=== PATIENT | female | born 1995 | race Caucasian/White ===

== ENCOUNTER 2020-03-08 11:07 | Emergency (ER) | payer OTHER, SELFPAY ==
[~2020-03-08] VITALS: Ht 167.6 cm; Wt 68.0 kg
[2020-03-08 11:09] VITALS: Ht 167.6 cm; Wt 68.0 kg
[2020-03-08 14:09] VITALS: BP 116/72
== END 2020-03-08 14:09 | disposition home or self-care (01) ==
LOC: ED 11:07
DX: A08.4 Viral intestinal infection, unspecified (principal)
CPT/HCPCS: J2405; J7030

== ENCOUNTER 2020-03-29 11:57 | Emergency (ER) | payer OTHER ==
[2020-03-29 14:24] LABS: BASOPHIL % 0.5 % (0-2); PLATELET COUNT 274 x10^3mcL (130-400); RED CELL DISTRIBUTION WIDTH 12.5 % (11.5-14.5)
[2020-03-29 14:52] LABS: ALBUMIN 4.4 g/dL (3.4-5.0); ALKALINE PHOSPHATASE 65 U/L (46-116); ALT/SGPT 27 U/L (14-59); AST/SGOT 15 U/L (15-37); BILIRUBIN TOTAL 0.7 mg/dL (0.20-1.00); CALCIUM 9.2 mg/dL (8.5-10.1); CARBON DIOXIDE 19.9 mmol/L (21-32); CHLORIDE SERUM 99 mmol/L (98-107); CREATININE SERUM 0.8 mg/dL (0.6-1.0); GFR1 > 60 mL/min; GLUCOSE SERUM 67 mg/dL (74-106); LIPASE 115 IU/L (73-393); POTASSIUM SERUM 4.7 mmol/L (3.5-5.1); SODIUM SERUM 136 mmol/L (136-145); TOTAL PROTEIN, SERUM 8.2 g/dL (6.4-8.2)
[2020-03-29 16:35] VITALS: BP 108/68
== END 2020-03-29 16:00 | disposition home or self-care (01) ==
LOC: ED 11:57
PROVIDERS: Emergency Medicine
DX: E86.0 Dehydration (principal); R11.2 Nausea with vomiting, unspecified
CPT/HCPCS: 82962; J2405; J7030

== ENCOUNTER 2020-04-08 08:49 | Emergency (ER) | payer OTHER ==
[~2020-04-08] VITALS: Ht 165.1 cm; Wt 63.5 kg
[2020-04-08 08:59] VITALS: Ht 165.1 cm; Wt 63.5 kg
[2020-04-08 09:29] LABS: UA SPECIFIC GRAVITY >=1.030 (1.005-1.035); microscopic required? YES; urine erythrocyte 2+ (NEGATIVE)
[2020-04-08 09:33] LABS: BASOPHIL % 0.7 % (0-2); PLATELET COUNT 193 x10^3mcL (130-400); RED CELL DISTRIBUTION WIDTH 13.2 % (11.5-14.5)
[2020-04-08 09:48] LABS: CALCIUM 8.5 mg/dL (8.5-10.1); CARBON DIOXIDE 15.8 mmol/L (21-32); CHLORIDE SERUM 104 mmol/L (98-107); CREATININE SERUM 0.9 mg/dL (0.6-1.0); GFR1 > 60 mL/min; GLUCOSE SERUM 74 mg/dL (74-106); POTASSIUM SERUM 3.6 mmol/L (3.5-5.1); SODIUM SERUM 141 mmol/L (136-145)
[2020-04-08 09:53] LABS: ALBUMIN 4.3 g/dL (3.4-5.0); ALKALINE PHOSPHATASE 65 U/L (46-116); ALT/SGPT 25 U/L (14-59); AST/SGOT 17 U/L (15-37); BILIRUBIN TOTAL 0.62 mg/dL (0.20-1.00); LIPASE 451 IU/L (73-393); TOTAL PROTEIN, SERUM 7.8 g/dL (6.4-8.2)
[2020-04-08 12:30] LABS: AMPHETAMINE QUAL UR NONE DETECTED (See below)
[2020-04-08 13:10] VITALS: BP 105/69
== END 2020-04-08 13:10 | disposition home or self-care (01) ==
LOC: ED 08:49
PROVIDERS: Emergency Medicine
DX: R10.13 Epigastric pain (principal); R11.2 Nausea with vomiting, unspecified
CPT/HCPCS: J2405; J3490; J7030; Q0092

== ENCOUNTER 2020-05-03 11:15 | Emergency (ER) | payer OTHER ==
[~2020-05-03] VITALS: Ht 167.6 cm; Wt 59.0 kg
[2020-05-03 11:22] VITALS: Ht 167.6 cm; Wt 59.0 kg
[2020-05-03 12:20] LABS: CALCIUM 9.1 mg/dL (8.5-10.1); CARBON DIOXIDE 25.3 mmol/L (21-32); CHLORIDE SERUM 92 mmol/L (98-107); GFR1 > 60 mL/min; GLUCOSE SERUM 80 mg/dL (74-106); POTASSIUM SERUM 3.5 mmol/L (3.5-5.1); SODIUM SERUM 133 mmol/L (136-145)
[2020-05-03 12:33] LABS: ALBUMIN 3.9 g/dL (3.4-5.0); ALKALINE PHOSPHATASE 61 U/L (46-116); ALT/SGPT 378 U/L (14-59); AST/SGOT 155 U/L (15-37); BILIRUBIN TOTAL 1.6 mg/dL (0.20-1.00); LIPASE 479 IU/L (73-393); T4(THYROXINE) 9.2 ug/dL (4.7-13.3); TOTAL PROTEIN, SERUM 6.8 g/dL (6.4-8.2)
[2020-05-03 14:32] LABS: BASOPHIL % 0.4 % (0-2); PLATELET COUNT 162 x10^3mcL (130-400); RED CELL DISTRIBUTION WIDTH 14.3 % (11.5-14.5)
[2020-05-03 15:17] VITALS: BP 110/71
== END 2020-05-03 15:17 | disposition home or self-care (01) ==
LOC: ED 11:15
PROVIDERS: Emergency Medicine
DX: K85.90 Acute pancreatitis without necrosis or infection, unspecified (principal); R11.0 Nausea
CPT/HCPCS: C9113; J0780; J7030; Q9967

== ENCOUNTER 2020-06-02 16:45 | Inpatient (IN) | payer OTHER ==
[~2020-06-02] VITALS: Ht 162.6 cm; Wt 52.6 kg
[2020-06-02 17:16] VITALS: Ht 162.6 cm; Wt 52.6 kg
--- NOTE | 2020-06-02 17:32 | NUR ---
PT PRESENTS TO ED FOR EPIGASTIC PAIN X4 DAYS. PT STATES PAIN STARTED WHEN SHE BEGAN DRINKING ETOH. PT STATED SHE STOPPED DRINKING ETOH 2 MONTHS AGO, BUT GETS FLARE UP. PT ABD IS SOFT FLAT AND NON-RIGID. PT DENIES ANY VOMITING, DIARRHEA, OR CONSTIPATION. PT DENIES ANY BLOOD IN STOOL. PT DENIES ANY TENDERNESS TO PALPITATION. PT HAS ACTIVE BOWEL SOUNDS. PT A&O X4, RESP E/U, AND EQUAL CHEST RISE. WILL CONTINUE TO MONITOR.
[2020-06-02 18:02] LABS: BASOPHIL % 0.7 % (0-2); PLATELET COUNT 206 x10^3mcL (130-400)
--- NOTE | 2020-06-02 18:09 | NUR ---
PT A&O X4, RESP E/U, EQUAL RISE OF CHEST. WILL CONTINUE TO FOLLOW
[2020-06-02 18:16] LABS: RED CELL DISTRIBUTION WIDTH 18.9 % (11.5-14.5)
[2020-06-02 18:33] LABS: ALBUMIN 4.3 g/dL (3.4-5.0); ALKALINE PHOSPHATASE 72 U/L (46-116); ALT/SGPT 374 U/L (14-59); AST/SGOT 187 U/L (15-37); BILIRUBIN TOTAL 2.54 mg/dL (0.20-1.00); CALCIUM 9.5 mg/dL (8.5-10.1); CARBON DIOXIDE 19.1 mmol/L (21-32); CHLORIDE SERUM 106 mmol/L (98-107); CREATININE SERUM 0.9 mg/dL (0.6-1.0); GFR1 > 60 mL/min; GLUCOSE SERUM 78 mg/dL (74-106); LIPASE 710 IU/L (73-393); MAGNESIUM 1.8 mg/dL (1.8-2.4); SODIUM SERUM 138 mmol/L (136-145); T4(THYROXINE) 9.3 ug/dL (4.7-13.3); TOTAL PROTEIN, SERUM 7.6 g/dL (6.4-8.2)
[2020-06-02 18:39] LABS: POTASSIUM SERUM 2.7 mmol/L (3.5-5.1)
[2020-06-02 19:01] LABS: UA SPECIFIC GRAVITY >=1.030 (1.005-1.035); microscopic required? YES; urine erythrocyte 3+ (NEGATIVE)
[2020-06-02 19:06] LABS: AMPHETAMINE QUAL UR NONE DETECTED (See below)
--- NOTE | 2020-06-02 19:08 | NUR ---
PT A&O X4, RESP E/U, EQUAL CHEST RISE. WILL CONTINUE TO MONITOR.
--- NOTE | 2020-06-02 19:15 | NUR ---
RECIEVED REPRT FROM SUE AVILA TO ASSUME CARE. PT AAOX4, DENIES ANY PAIN AT THIS TIME. PT MADE AWARE OF ADMIT ORDERS.
[2020-06-02] MEDS ORDERED: ZOF4 PO (20:14)
--- NOTE | 2020-06-02 20:25 | NUR ---
UPON ENTERING ROOM PT VISIBLY TEARFUL, PT STATED SHE WAS SCARED ABOUT BEING ADMITTED. SAT WITH PT AND PROVIDED COMFORT.
--- NOTE | 2020-06-02 20:49 | NUR ---
PT C/O HER ARM BURNING. PT SALINE BOLUS WAS OUT AND K+ WAS STILL INFUSING. STARTED SECOND ORDERED NS BLOUS AND PT STATED BURNING SUBSIDED.
--- NOTE | 2020-06-03 00:22 | NUR ---
PT ARRIVED TO [facility] AT 2205 VIA GURNEY ACCOMPANIED BY RN. PT WAS ABLE TO AMBULATE FROM HALLWAY TO BED BUT REQUIRED STAND BY ASSIST PT APPEARS WEAK. A/OX4, CALM AND COOPERATIVE. RESPIRATIONS EVEN, UNLABORED, CTA, RA, DENIES SOB. PT PLACED ON TELE, SINUS TACH 115-124, DENIES CHEST PAIN. PERIPHERAL PULSES WEAK. NO EDEMA NOTED. BS ACTIVE, ABD SOFT AND FLAT, PT UNABLE TO RECALL LBM, STATES "WEEKS, I HAVENT BEEN EATING". PT STATES HER APPETITE IS POOR AND HAS LOST 30 LOBS IN THE LAST COUPLE MONTHS. SHE IS ONLY ABLE TO DRINK SMALL AMOUNTS OF WATER. DENIES DURINARY ISSUES BUT REPORTS URINE IS DARK. SKIN INTACT. SL L HAND 22G, PATENT. RN ATTEMPTED TO RUN 40MEQkCL + NS @80ML.HR ORDERED, BUT PT XPERIENCING INTENSE PAIN TO IV SITE. RN ATTEMTED TO YSITE IV TO DILUTE BUT UNSUCCESSFUL. RN ATTEMPTED TO PLACE IV RUE, PT REQUESTED IT TO BE REMOVED IT WAS PAINFUL WELL. WILL LET L HAND REST AND RESTART. PT EDUCATED TO CALL LIGHT, ORIENTED TO ROOM. BED IN LOWEST PSOITION, SIDE RAILS X 2, CALL LIGTH WITHIN REACH
[2020-06-03 02:02] VITALS: BP 109/74
--- NOTE | 2020-06-03 03:43 | NUR ---
PT USED CALL C/O OF HEARTBURN. RN EDUCATED PT ON ORIGIN OF PAIN AND PAIN MEDICATION WELL REGIMEN. MORPHINE 4MG IVP ADMINISTERED ORDERED. 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 ALL NEEDS MET. BED IN LOWEST POSITION, SIDE RAILS X 2, CALL LIGHT WITHIN REACH
[2020-06-03 05:42] VITALS: BP 96/61
--- NOTE | 2020-06-03 06:35 | NUR ---
PT LYING IN BED SLEEPING SUPINE. RESPIRATIONS UNLABORED, NON VERBAL PAIN INDICATORS ABSENT. IV L HAND PATENT, RUNNING NS+40MEQKCL@80ML/HR, NO COMPLICATIONS TO SITE. PT C/O EPIGASTRIC PAIN X 1, MORPHINE 4 MG ADMINISTERED, EFFECTIVE. PT HAS GENERALIZED WEKANESS, ASSISTED TO RESTROOM X 2. NO C/O SOB, CHEST PAIN, N/V, LIGHT HEADEDNESS DURING SHIFT . BED IN LOWEST POSITION, SIDE RAILS X 2, CALL LIGHT WITHIN REACH
[2020-06-03 06:51] LABS: BASOPHIL % 0.6 % (0-2); PLATELET COUNT 150 x10^3mcL (130-400)
[2020-06-03 07:15] LABS: ALKALINE PHOSPHATASE 44 U/L (46-116); ALT/SGPT 212 U/L (14-59); AST/SGOT 99 U/L (15-37); BILIRUBIN TOTAL 1.55 mg/dL (0.20-1.00); CALCIUM 7.8 mg/dL (8.5-10.1); CARBON DIOXIDE 17.1 mmol/L (21-32); CHLORIDE SERUM 113 mmol/L (98-107); CREATININE SERUM 0.7 mg/dL (0.6-1.0); GFR1 > 60 mL/min; GLUCOSE SERUM 60 mg/dL (74-106); LIPASE 794 IU/L (73-393); MAGNESIUM 1.5 mg/dL (1.8-2.4); PHOSPHOROUS 2.6 mg/dL (2.5-4.9); POTASSIUM SERUM 3.3 mmol/L (3.5-5.1); SODIUM SERUM 144 mmol/L (136-145)
[2020-06-03 07:27] LABS: ALBUMIN 2.8 g/dL (3.4-5.0); TOTAL PROTEIN, SERUM 4.9 g/dL (6.4-8.2)
[2020-06-03 08:00] LABS: RED CELL DISTRIBUTION WIDTH 19.2 % (11.5-14.5)
[2020-06-03 09:27] VITALS: BP 103/74
--- NOTE | 2020-06-03 12:17 | NUR ---
0830 PATIENT LAYING IN BED, VS STABLE, NO COMPLAINT OF PAIN, JUST SOME NAUSEA. PATIENT WAS GIVEN MEDICATION FOR NAUSEA, NAUSEA WAS CONTROLLED TO 4/10. NO OTHER COMPLAINTS AT THE [facility].
--- NOTE | 2020-06-03 12:19 | NUR ---
DR BADILLO CAME TO SPEAK TO PATIENT. NO ABNORMAL LABS FOUND. VS STABLE. LOCX4 POSSIBLE DISCHARGE IF PATIENT CAN TOLERATE CLEAR LIQUID DIET.
[2020-06-03 13:11] VITALS: BP 112/78
--- NOTE | 2020-06-03 14:00 | NUR ---
PATIENT HEART RATE TENDS TO GO UP TO 130S, DR TAI.
[2020-06-03 16:53] VITALS: BP 107/74
--- NOTE | 2020-06-03 18:31 | NUR ---
PATIENT HAS BEEN ENCOURAGED TO EAT NEW DIET ORDER, CLEAR LIQUIDS. PATIENT WAS EDUCATED ON NUTRITION. PATIENT AGREED TO TRY TO EAT SOMETHING.
--- NOTE | 2020-06-03 19:59 | NUR ---
PT RECEIVED LYING IN BED SUPINE WATCHING TV. PT ASSISTED TO RESTROOM DUE TO WEAKNESS. A/OX4, PT APPEARS WORRIED AND ANXIOUS BUT RELUCTANT TO SHARE. RESPIRATIONS UNLABORED, CTA, RA, DENIES SOB. TELE 9, ST 115 UPTO 180 WHEN AMBUALTING TO RESTROOM. PT DENIES CHEST PAIN OR DIZZINESS/LIGHTHEADEDNESS. ABD SOFT AND FLAT, BS ACTIVE, UKNOWN LBM. PT STATES SHE CONTINUES TO HAVE NAUSEA AND DID NOT EAT CLD BECAUSE SHE IS "SCARED TO THROW UP". ANTIEMETIC PRIOR TO EATING DISCUSSED HOWEVER, PT REFUSED. EMESIS BAG PROVIDED. DENIES URINARY ISSUES. SKIN INTACT. IV L HAND RUNNING NS+40MEQ KCL @ 80ML/HR PATENT, NO COMPLICATIONS TO SITE. BED IN LOWEST POSITION, SIDE RAILS X 2, CALL LIGHT WITHIN REACH.
[2020-06-03 20:32] VITALS: BP 114/74
--- NOTE | 2020-06-04 01:22 | NUR ---
PT SLEEPING IN BED SUPINE. RESPIRATIONS UNLABORED. NON VERBAL PAIN INDICATORS ABSENT. IV L HAND RUNNING MAG SULFATE @ 25ML/HR AND CALCIUM GLUCONATE @ 120 ML/HR, FOR MAG 1.5, CA 7.8 RESPECTIVELY, NO COMPICATIONS TO SITE. PRIOR TO PT FALLING ASLEEP PT ASSISTED TO RESTROOM TO URINATE. PT NOTED TO BECOME TACHY TO 150S. RETURN TO BASELINE UPON RESTING. PT ALSO GIVEN K PO ORDERED, PT UNABLE TO TOLERATE 1/2 PILL, BECAME NAUSEOUS AND THREW IT UP. REGLAN IV ADMISNITERED ORDERED. MED CRUSHED AND ADMINISTERED WITH SMALL AMOUNT OF APPLE SAUCE, PT REFUSED WITH JELLO. TOLERATED WELL NO N/V. ALL NEEDS MET AT THIS TIME.
[2020-06-04 05:21] VITALS: BP 108/79
--- NOTE | 2020-06-04 06:13 | NUR ---
NO C/O PAIN, SOB, DIZZINESS DURING SHIFT. PT NOTED TO BE EMOTIONAL DURING SHIFT, CRYING BEFORE MED ADMINS OR WHEN EXPERIENCING NAUSEA. PT IS GUARDED AND UNWILLING TO EXPRESS THOUGHTS OR FEELINGS. PSYCH CONSULT COMPLETED, PER DR KEITA PT GUARADED, WILL FOLLOW DAILY IN ATTEMPT TO HAVE PT OPEN UP. ZOFRAN ADMISNITERED X 1 PRIOR TO MED PASS TO PREVENT N/V WITH MEDS, EFFECTIVE. REGLAN X 1 AFTER PT UNABLE TO TOLERATE 1/2 PILL OF KLOR CON, EFFECTIVE. PT GIVEN 40 MEQ K FOR K 3.3, TOLERATED. PT ALSO HAD LOW MAG 1.5 AND CA 7.8, REPLACED IV ORDERED. PT DISPLAYS GENERALIZED WEAKNESS AND REQUIRES ASSISTANCE TO GET OOB AND STAND BY ASSIST TO AMBUALTE. NO FALLS OR INJURIES SUSTAINED. URINATED X 3, NO BM DURING SHIFT. IV L HAND RUNNING NS+40MEQ KCL @80 ML/HR, NO COMPLICATIONS TO SITE. TELE 9, ST - SR, 85-180S (WHEN AMBULATING). PT DENIES CHEST PAIN. US ABD COMPLETED. ALL NEEDS MET. BED IN LOWEST POSITION, SIDE RAILS X 2, CALL LIGHT WITHIN REACH
[2020-06-04 06:32] LABS: BASOPHIL % 0.5 % (0-2); PLATELET COUNT 143 x10^3mcL (130-400)
[2020-06-04 06:40] LABS: RED CELL DISTRIBUTION WIDTH 19.3 % (11.5-14.5)
[2020-06-04 07:08] LABS: ALKALINE PHOSPHATASE 49 U/L (46-116); ALT/SGPT 222 U/L (14-59); AST/SGOT 118 U/L (15-37); BILIRUBIN TOTAL 1.76 mg/dL (0.20-1.00); CALCIUM 7.5 mg/dL (8.5-10.1); CHLORIDE SERUM 104 mmol/L (98-107); CREATININE SERUM 0.6 mg/dL (0.6-1.0); GFR1 > 60 mL/min; GLUCOSE SERUM 63 mg/dL (74-106); LIPASE 766 IU/L (73-393); POTASSIUM SERUM 4.3 mmol/L (3.5-5.1); SODIUM SERUM 137 mmol/L (136-145)
[2020-06-04 07:19] LABS: ALBUMIN 2.9 g/dL (3.4-5.0); TOTAL PROTEIN, SERUM 5.1 g/dL (6.4-8.2)
--- NOTE | 2020-06-04 07:37 | NUR ---
PT RECEIVED FROM PM NURSE. PT IS AWAKE AND RESTING COMFORTABLY AT THIS TIME. NO FACIAL DISTRESS OR SOB NOTED. PT IS A/OX4. ABLE TO MAKE NEEDS KNOWN. DENIES KUMARI/DIZZINESS. LUNG SOUNDS CTA. BREATHING E/U ON RA. TELE #9. DENIES CP/PRESSURE. PALPABLE PULSES. NO EDEMA NOTED. ACTIVE BSX4. ABD SOFT AND NONDISTENDED. VOIDS FREELY. GENERALIZED WEAKNESS NOTED. SKIN INTACT. NO C/O PAIN AT THIS TIME. IV 22G TO L HAND CURRENTLY INFUSING NS WITH 40MEQ KCL AT 80CC/HR. BED AT LOWEST POSITION. CALL BUTTON WITHIN REACH. WILL CONTINUE TO MONITOR.
[2020-06-04 08:37] VITALS: BP 110/75
[2020-06-04 12:00] VITALS: BP 110/80
[2020-06-04] MEDS ORDERED: PROT40I PO (14:55)
[2020-06-04] MEDS ORDERED: CARL PO (14:55)
[2020-06-04 15:04] VITALS: BP 110/80
--- NOTE | 2020-06-04 15:29 | NUR ---
DISCHARGE PAPERWORK REVIEWED WITH PT. PT VERBALIZED UNDERSTANDING TO HER DIAGNOSIS AND HER NEW MEDICATION. WILL REMOVE IV AND HEART MONITOR ONCE THE PATIENT'S TRANSPORTATION GETS HERE.
--- NOTE | 2020-06-04 15:49 | NUR ---
IV REMOVED. CATHETAR INTACT. NO ADDITIONAL BLEEDING NOTED. HEART MONITOR REMOVED AND HANDED OVER TO TELE PROCESS MECHANIC. PATIENT LEFT HOSPITAL IN STABLE CONDITION TO HOME SELF CARE.
== END 2020-06-04 15:50 | disposition home or self-care (01) | DRG 282 ==
LOC: ED 16:45 → DU 19:10
PROVIDERS: Emergency Medicine; ADMIT Hospitalist; ATTEND Psychiatry & Neurology Psychiatry
DX: K85.90 Acute pancreatitis without necrosis or infection, unspecified (principal); E87.6 Hypokalemia; K21.9 Gastro-esophageal reflux disease without esophagitis; F10.20 Alcohol dependence, uncomplicated; Y90.9 Presence of alcohol in blood, level not specified; Z20.828 Contact with and (suspected) exposure to other viral communicable diseases; F32.9 Major depressive disorder, single episode, unspecified; F41.9 Anxiety disorder, unspecified; R00.0 Tachycardia, unspecified
CPT/HCPCS: 82962; 83880; 97116-GP; 97530-GP; C9113; G0378; G0480; J0610; J1644; J2270; J2405; J2765; J3475; J3480; J7030; J7050; Q0092